=== PATIENT | female | born 1975 | race African-American/Black ===

== ENCOUNTER 2021-01-03 23:47 | Emergency (ER) | payer OTHER ==
[~2021-01-03] VITALS: Ht 162.6 cm; Wt 68.2 kg
[2021-01-03] MEDS ORDERED: FLUT1BLS8 IH (23:57)
[2021-01-04 00:40] VITALS: BP 154/84
[2021-01-04] MEDS ORDERED: ACETAMINOPHEN 500 MG TABLET PO ONE (01:00)
[2021-01-04] MEDS ORDERED: CLINDAMYCIN HCL 150 MG CAPSULE PO ONE (01:00)
== END 2021-01-04 01:24 | disposition home or self-care (01) ==
LOC: EMS 23:54
DX: L03.213 Periorbital cellulitis (principal); J45.909 Unspecified asthma, uncomplicated; Z90.710 Acquired absence of both cervix and uterus; Z88.5 Allergy status to narcotic agent
CPT/HCPCS: 99283